=== PATIENT | male | born 1955 | race Caucasian/White ===

== ENCOUNTER 2018-01-14 12:39 | Day surgery (SDC) | payer OTHER ==
[~2018-01-14] VITALS: Ht 182.9 cm; Wt 105.8 kg
[~2018-01-14 12:39] MED LIST: ATOR40TA PO; DICL75ER PO; Elidel30 GM; FLONASE ALLERG9.9 ML; FLUT.05NI; GABA600 PO; GABA800 PO; HYDACE10B PO; Imitrex100 MG PO; MELA3 PO; METR59TL; MORP30ER PO; Mirapex1 MG PO; Norco 10-325 T1 EACH PO; Omeprazole20 M1 PO; PANT40 PO; PIME1CR TOP; POLY17UD PO; SERT50 PO; SIMV20 PO; TIZA4 PO; VIT B 12 PO; VIT B 6 PO; XARELTO20 MG PO; ZOLP10 PO
== END 2018-01-14 15:05 | disposition home or self-care (01) ==
LOC: ORSCSDS 12:39
PROVIDERS: Internal Medicine Gastroenterology
PROC: 0DBH8ZX Excision of Cecum, Via Natural or Artificial Opening Endoscopic, Diagnostic (ICD-10-PCS; principal; 2018-01-14 14:00)
PROC: 0DBM8ZX Excision of Descending Colon, Via Natural or Artificial Opening Endoscopic, Diagnostic (ICD-10-PCS; principal; 2018-01-14 14:00)
DX: R19.4 Change in bowel habit (principal); D12.4 Benign neoplasm of descending colon; K63.5 Polyp of colon; K60.2 Anal fissure, unspecified; K57.30 Diverticulosis of large intestine without perforation or abscess without bleeding; K92.1 Melena; Z86.010 Personal history of colon polyps; G47.33 Obstructive sleep apnea (adult) (pediatric); D68.51 Activated protein C resistance; Z86.718 Personal history of other venous thrombosis and embolism; Z86.711 Personal history of pulmonary embolism; Z87.891 Personal history of nicotine dependence; Z79.01 Long term (current) use of anticoagulants; Z79.899 Other long term (current) drug therapy
CPT/HCPCS: 88305; J7120